=== PATIENT | male | born 1985 | race American Indian/Alaskan Native ===

== ENCOUNTER 2020-03-20 20:38 | Emergency (ER) | payer OTHER ==
[~2020-03-20] VITALS: Ht 182.9 cm; Wt 109.3 kg
[2020-03-20] MEDS ORDERED: ZYRTEC10 M3 PO (20:58)
--- NOTE | 2020-03-21 15:41 | EKG ---
[facility] [address] [facility] [place], [place] [address] Signed Sinus tachycardia Inferior infarct , age undetermined Abnormal ECG No previous ECGs available Confirmed by ELZA SARKAR MD ([id number]) on 03/21/2020 3:41:34 PM Electronically Signed By: ELZA SARKAR MD 03/21/20 1541 PATIENT NAME: LONNIE MAYNARD Electrocardiogram DATE OF : 85 PHYSICIAN: ELZA SARKAR MD REPORT #: [id number] REPORT IS CONFIDENTIAL AND NOT TO BE RELEASED WITHOUT AUTHORIZATION
== END 2020-03-20 23:35 | disposition home or self-care (01) ==
LOC: ED 20:38
DX: R00.0 Tachycardia, unspecified (principal); E86.0 Dehydration; K21.9 Gastro-esophageal reflux disease without esophagitis; J45.909 Unspecified asthma, uncomplicated; F41.9 Anxiety disorder, unspecified; F17.200 Nicotine dependence, unspecified, uncomplicated; Z79.899 Other long term (current) drug therapy
CPT/HCPCS: 71045; 80053; 81001; 83735; 84484; 85025; 85379; 93005; 93010; 96361; 96374; 96376; 99285-25; J2060; J7030

== ENCOUNTER 2020-04-01 17:11 | Emergency (ER) | payer OTHER ==
[~2020-04-01] VITALS: Ht 182.9 cm; Wt 109.3 kg
[~2020-04-01 17:11] MED LIST: ZYRTEC10 M3 PO
--- OUTSIDE RECORDS SUMMARY | 2020-04-01 17:14 | XMS ---
PreManage Notification: LONNIE MAYNARD Security Gifted Program Teacher Events No recent Security Events currently on file CRITERIA MET - [facility] - 2 Visits in 30 Days CARE PROVIDERS There are no care providers on record at this time. Marquis has no Care Guidelines for this patient. Bethany VISIT COUNT (12 MO.) 2 [facility] [place] TOTAL 2 NOTE: Visits indicate total known visits. ED/C VISIT TRACKING (12 MO.) 04/01/2020 17:[address] [facility] [place] TYPE: Emergency COMPLAINT: - SOB 03/20/2020 20:[address] [facility] [place] TYPE: Emergency COMPLAINT: - SOB DIAGNOSES: - Nicotine dependence, unspecified, uncomplicated - Unspecified asthma, uncomplicated - Tachycardia, unspecified - Other termite technician (current) drug therapy - Gastro-esophageal reflux disease without esophagitis - Dehydration - Shortness of breath - Anxiety disorder, unspecified INPATIENT VISIT TRACKING (12 MO.) No inpatient visits to display in this time frame [email or web address]
[2020-04-01] MEDS ORDERED: PRILOSEC OTC20 MG PO (20:35)
--- NOTE | 2020-04-02 11:00 | EKG ---
[facility] [address] [facility] [place] [address] Signed Normal sinus rhythm Normal ECG When compared with ECG of 20-MAR-2020 20:50, Vent. rate has decreased BY 52 BPM Nonspecific T wave abnormality no longer evident in Lateral leads Confirmed by ELZA SARKAR MD ([id number]) on 04/02/2020 11:00:36 AM Electronically Signed By: ELZA SARKAR MD 04/02/20 1100 PATIENT NAME: LONNIE MAYNARD ADRIAN Electrocardiogram DATE OF : 85 PHYSICIAN: ELZA SARKAR MD REPORT #: [id number] REPORT IS CONFIDENTIAL AND NOT TO BE RELEASED WITHOUT AUTHORIZATION
== END 2020-04-01 21:35 | disposition home or self-care (01) ==
LOC: ED 17:11
DX: R00.2 Palpitations (principal); J45.909 Unspecified asthma, uncomplicated; K21.9 Gastro-esophageal reflux disease without esophagitis; Z87.891 Personal history of nicotine dependence; Z79.899 Other long term (current) drug therapy
CPT/HCPCS: 93005; 93010; 93225; 93226; 93227; 99284-25

== ENCOUNTER 2021-04-16 05:50 | Day surgery (SDC) | payer OTHER ==
[~2021-04-16] VITALS: Ht 182.9 cm; Wt 96.8 kg
[~2021-04-16 05:50] MED LIST changes: +ATIVAN1 MG PO; +FLONASE ALLERG9.9 ML; +LEXAPRO10 MG PO; +PRILOSEC OTC20 MG PO
[2021-04-16] MEDS ORDERED: ZINC30 M1 PO (07:17)
[2021-04-16] MEDS ORDERED: B COMPLEX1 EACH PO (07:17)
--- NOTE | 2021-04-16 09:00 | NUR ---
04/16/21 0900 Kymberly Sandoval 0815 PT ARRIVED IN PACU SLEEPY WITH NO C/O'S. ABD SOFT AND PASSING FLATUS. 0830 SITTING UP IN BED TALKING WITH ALL QUESTIONS ANSWERED. 0843 DC INSTRUCTIONS GIVEN TO PT AT BEDSIDE AND MOTHER AT CAR. LEFT VIA W/C.
--- NOTE | 2021-04-16 14:58 | OR ---
[facility] [address] [place], [place] [address] Signed DATE OF OPERATION: 04/16/2021 SURGEON: Nadine Decker MD PREOPERATIVE DIAGNOSES: 1. Gastroesophageal reflux disease. 2. Nausea with intermittent shortness of breath. 3. Intermittent rectal bleeding. POSTOPERATIVE DIAGNOSES: 1. Mild diffuse gastritis. 2. Small hiatal hernia. 3. Gastroesophageal junction at 38 cm. 4. 7 mm polyp at 75 cm. 5. Distal 1/2 proctitis. PROCEDURES: 1. EGD with CLOtest and biopsies of the duodenum, pyloric bulb and antrum. 2. Colonoscopy with hot biopsy at 75 cm and multiple cold biopsies throughout the entire colon and rectum. ESTIMATED BLOOD LOSS: Minimal. INDICATIONS: Lonnie is a 35-year-old young man, asked to see me for upper and lower endoscopy. He said he was having acid reflux with nausea and even some shortness of breath. He went on omeprazole quite a bit better. He also said in the last three months he has been having blood associated with bowel movements. Sometimes he by itself. He gives no family history of colon cancer or polyps. No family history of inflammatory bowel disease. He said he was drinking up to five days a week since age of 14. He likes to drink bourbon. He said he is now down to about four drinks in the year. He said he quit smoking back in 2020. He said he is involved in CBD and THC for anxiety. He said he is single, but involved by sexual relationships. He said he has not been the receptive partner for many years. In the office, I gave him a pamphlet on upper and lower endoscopy. We looked at that together including the risk. He understands the risks including, but not limited to gas bloating, crampy abdominal pain, bleeding, perforation requiring surgery, and missed diagnosis. We also discussed the need for monitored anesthesia care given his medications, his body habitus and his daily use of marijuana. He had expressed understanding and wished to proceed. Electronically Signed By: NADINE DECKER MD 04/16/21 1458 PATIENT NAME: LONNIE MAYNARD OPERATIVE REPORT DATE OF : [birth year] REPORT #: [id number] PHYSICIAN: NADINE DECKER MD PCP: [facility] REPORT IS CONFIDENTIAL AND NOT TO BE RELEASED WITHOUT AUTHORIZATION [facility] [address] [place], [place] [address] Signed PROCEDURE NOTE: Lonnie was taken into our endoscopy suite and placed in a supine semi-recumbent position. A bite block was utilized for the case. He was given monitored anesthesia care with propofol and ketamine per our nurse health social work professor. The adult gastroscope was introduced and we could see he has fairly large tonsils just above the epiglottis. Otherwise, the vocal cords and arytenoids were unremarkable. The scope was passed down the esophagus out through the stomach and into the duodenum. The duodenum and pyloric channel were not overly concerning. We went and took biopsies from the duodenal and pyloric channel for pathologic review. His stomach showed some mild diffuse erythematous changes. I suspect that is getting better now that he is on his omeprazole. We took a biopsy of the antrum for CLOtest as well as pathologic review. Upon retroflexion of scope, we could easily see a small hiatal hernia. The scope was withdrawn up through the area of the GE junction, which was compliant without stricture. There was no gastric or esophageal varices. He has minimal disruption to his Z-line. There was no Loera's mucosa. The distal esophagus was unremarkable. The middle and upper esophagus were unremarkable. After this, the gas had been suctioned out and the gastroscope removed. We measured out Lonnie's GE junction at 38 cm. Lonnie tolerated his upper endoscopy quite well. Lonnie was then rotated into the left lateral decubitus position. A digital rectal exam was performed and this was unremarkable. He was maintained on monitored anesthesia care per our nurse health social work professor. The adult colonoscope was introduced and we immediately encountered inflammatory changes starting at the anus up to about the mid rectum around 10-12 cm. Above that it rapidly dissipated and the rest of the colon all the way to the cecum seemed to be unremarkable. His prep was moderate. He had several areas of thick particulate stool matter that could not suction out completely. He might consider a double bowel prep in the future. We saw at least 90% of the mucosa if not more. We could easily see the ileocecal valve. We went ahead and took a cold biopsy starting at the cecum all the way to the colon and his rectum for pathologic documentation. We did not turn the scope into the terminal ileum as it was covered in particulate stool matter and we could not quite get the scope to turn. Once in the rectum, we had retroflexed the scope and we saw no additional pathology above the anal canal. After this, the gas was suctioned out and the colonoscope removed. Lonnie tolerated this procedure quite well. RECOMMENDATIONS: Lonnie should consider a double bowel prep in the future. We are going to give him hydrocortisone 25 mg suppositories per rectum twice a day for two weeks with one refill. If that is not corrected, he may need other suppositories. I will see him back in the office in 1-2 weeks for followup. Electronically Signed By: NADINE DECKER MD 04/16/21 0141 PATIENT NAME: LONNIE MAYNARD OPERATIVE REPORT DATE OF : [birth year] REPORT #: [id number] PHYSICIAN: NADINE DECKER MD PCP: [facility] REPORT IS CONFIDENTIAL AND NOT TO BE RELEASED WITHOUT AUTHORIZATION [address] [address] Signed Nadine Decker MD ALB/MODL /[id number] cc: Nadine Decker MD [facility] Copies: NADINE DECKER MD ~ Electronically Signed By: NADINE DECEKR MD 04/16/21 1458 PATIENT NAME: LONNIE MAYNARD OPERATIVE REPORT DATE OF : [birth year] REPORT #: [id number] PHYSICIAN: NADINE DECKER MD PCP: [facility] REPORT IS CONFIDENTIAL AND NOT TO BE RELEASED WITHOUT AUTHORIZATION
--- NOTE | 2021-04-17 14:21 | PATH ---
[facility] [address] [facility] [place] [address] Signed SPECIMEN(S): A DUODENAL BIOPSY SPECIMEN(S): B DUODENAL BULB BIOPSY SPECIMEN(S): C ANTRUM/PYLORUS BIOPSY SPECIMEN(S): D CECUM COLON BIOPSY SPECIMEN(S): E ASCENDING/RIGHT COLON BIOPSY SPECIMEN(S): F TRANSVERSE COLON BIOPSY SPECIMEN(S): G DESCENDING/LEFT COLON BIOPSY SPECIMEN(S): H COLON POLYP AT 75 CM SPECIMEN(S): I SIGMOID COLON BIOPSY SPECIMEN(S): J RECTUM PROXIMAL COLON BIOPSY SPECIMEN(S): K RECTUM MID COLON BIOPSY SPECIMEN(S): L RECTUM COLON BIOPSY AT 4 CM SPECIMEN SOURCE: A. DUODENAL BIOPSY B. DUODENAL BULB BIOPSY C. ANTRUM/PYLORUS BIOPSY D. CECUM COLON BIOPSY E. ASCENDING/RIGHT COLON BIOPSY F. TRANSVERSE COLON BIOPSY G. DESCENDING/LEFT COLON BIOPSY H. COLON POLYP AT 75 CM I. SIGMOID COLON BIOPSY J. RECTUM PROXIMAL COLON BIOPSY K. RECTUM MID COLON BIOPSY L. RECTUM COLON BIOPSY AT 4 CM CLINICAL HISTORY: EGD and colonoscopy. Preop: Acid reflux, nausea, rectal bleeding, history of diarrhea. Postop EGD: Small hiatal hernia, mild gastritis. Postop colonoscopy: Proctitis, polyp at 75 cm. MICROSCOPIC DESCRIPTION: Histologic sections of all submitted blocks are examined by light microscopy. These findings, together with the gross examination, support the pathologic diagnosis. FINAL PATHOLOGIC DIAGNOSIS: A. Duodenum, biopsies: - Unremarkable duodenal mucosa, negative for active inflammation or significant villous blunting. B. Duodenal bulb, biopsy: PATIENT NAME: LONNIE MAYNARD PATHOLOGY DATE OF : 85 REPORT #: [id number] PHYSICIAN: KERMIT BONILLA PCP: [facility] REPORT IS CONFIDENTIAL AND NOT TO BE RELEASED WITHOUT AUTHORIZATION [facility] [address] [place], [place] [address] Signed - Chronic duodenitis with Anna's gland hyperplasia. - Negative for active inflammation or significant villous blunting. C. Antrum/pylorus, biopsies: - Benign gastric mucosa with vascular congestion, negative for active inflammation. - No Helicobacter pylori bacteria are detected by HE stain. D. Cecum, biopsy: - Minute fragment of benign colonic mucosa, negative for active colitis, granulomas or dysplasia. E. Ascending/right colon, biopsy: - Small tubular adenoma. - Negative for active colitis, granulomas or dysplasia. F. Transverse colon, biopsies: - Unremarkable colonic mucosa. - Negative for active colitis, granulomas or dysplasia. G. Descending/left colon, biopsies: - Unremarkable colonic mucosa. - Negative for active colitis, granulomas or dysplasia. H. Colon polyp at 75 cm, biopsies: - Fragments of hyperplastic polyp. I. Sigmoid colon, biopsy: - Unremarkable colonic mucosa. - Negative for active colitis, granulomas or dysplasia. J. Proximal rectum, biopsies: - Unremarkable colonic mucosa. - Negative for active colitis, granulomas or dysplasia. K. Mid rectum, biopsies: - Chronic active colitis. - Negative for granulomas or dysplasia. L. Rectum, biopsies: - Chronic active colitis. - Negative for granulomas or dysplasia. AMB:[facility]:C2NR GROSS DESCRIPTION: Twelve specimens are received in twelve containers, labeled "KB." A. The specimen, labeled "KB, #1," and designated on the requisition "duodenum," is received in formalin and consists of one hayes soft tissue fragment that measures 0.4 cm in greatest dimension. The specimen is entirely submitted in cassette (A1). B. The specimen, labeled "KB, #2," and designated on the requisition "duodenal PATIENT NAME: LONNIE MAYNARD PATHOLOGY DATE OF : [birth year] REPORT #: [id number] PHYSICIAN: KERMIT BONILLA PCP: [facility] REPORT IS CONFIDENTIAL AND NOT TO BE RELEASED WITHOUT AUTHORIZATION [facility] [address] [place], [place] [address] Signed bulb," is received in formalin and consists of one hayes soft tissue fragment that measures 0.3 cm in greatest dimension. The specimen is entirely submitted in cassette (B1). C. The specimen, labeled "KB, #3," and designated on the requisition "antrum/pylorus," is received in formalin and consists of one hayes soft tissue fragment that measures 0.4 cm in greatest dimension. The specimen is entirely submitted in cassette (C1). D. The specimen, labeled "KB, #4," and designated on the requisition "cecum colon," is received in formalin and consists of one hayes soft tissue fragment with vegetative matter that measures 0.2 cm in greatest dimension. The specimen is entirely submitted in cassette (D1). E. The specimen, labeled "KB, #5," and designated on the requisition "ascending/right colon," is received in formalin and consists of one hayes soft tissue fragment that measures 0.3 cm in greatest dimension. The specimen is entirely submitted in cassette (E1). F. The specimen, labeled "KB, #6," and designated on the requisition "transverse colon," is received in formalin and consists of one hayes soft tissue fragment that measures 0.3 cm in greatest dimension. The specimen is entirely submitted in cassette (F1). G. The specimen, labeled "KB, #7," and designated on the requisition "descending/left colon," is received in formalin and consists of one hayes soft tissue fragment that measures 0.3 cm in greatest dimension. The specimen is entirely submitted in cassette (G1). H. The specimen, labeled "KB, #8," and designated on the requisition "colon polyp at 75 cm," is received in formalin and consists of two hayes soft tissue fragments that measure 0.3 cm in greatest dimension. The specimen is entirely submitted in cassette (H1). I. The specimen, labeled "KB, #9," and designated on the requisition "sigmoid colon," is received in formalin and consists of one hayes soft tissue fragment that measures 0.3 cm in greatest dimension. The specimen is entirely submitted in cassette (I1). J. The specimen, labeled "KB, #10," and designated on the requisition "proximal rectum," is received in formalin and consists of one hayes soft tissue fragment that measures 0.3 cm in greatest dimension. The specimen is entirely submitted in cassette (J1). K. The specimen, labeled "KB, #11," and designated on the requisition "mid rectum," is received in formalin and consists of two hayes soft tissue fragments that measure 0.3 cm in greatest dimension. The specimen is entirely submitted in cassette (K1). PATIENT NAME: LONNIE MAYNARD PATHOLOGY DATE OF : [birth year] REPORT #: [id number] PHYSICIAN: KERMIT BONILLA PCP: [facility] REPORT IS CONFIDENTIAL AND NOT TO BE RELEASED WITHOUT AUTHORIZATION [facility] [address] [place], [place] [address] Signed L. The specimen, labeled "KB, #12," and designated on the requisition "rectum at 4 cm," is received in formalin and consists of one hayes soft tissue fragment that measures 0.3 cm in greatest dimension. The specimen is entirely submitted in cassette (L1). Specimen received with friable fragments. AT (under the direct supervision of a pathologist) The Gross Description was prepared using a voice recognition system. The report was reviewed for accuracy; however, sound-alike word errors, addition and/or deletions may occur. If there is any question about this report, please contact Client Services. PERFORMING LABORATORY: The technical component was performed by [facility], [address] [place] [id number] (Tank Tender: Liz Duggan MD; CLIA# [id number]). Professional interpretation was performed by [facility] [address] (Tank Tender: Clarence Quintero M.D.; CLIA#: [id number]). Diagnostician: Liz Duggan MD Pathologist Electronically Signed 04/17/2021 Copies: ~ PATIENT NAME: LONNIE MAYNARD PATHOLOGY DATE OF : [birth year] REPORT #: [id number] PHYSICIAN: KERMIT BONILLA [facility] REPORT IS CONFIDENTIAL AND NOT TO BE RELEASED WITHOUT AUTHORIZATION
== END 2021-04-16 08:43 | disposition home or self-care (01) ==
LOC: OPS 05:50 → DS 05:50 → OPS 07:30 → DS 07:30 → OPS 08:15 → DS 08:15 → OPS 08:43 → DS 04-30 06:45
PROVIDERS: ATTEND Colon & Rectal Surgery
PROC: 0DBE8ZZ Excision of Large Intestine, Via Natural or Artificial Opening Endoscopic (ICD-10-PCS; 2021-04-16)
PROC: 0DB98ZZ Excision of Duodenum, Via Natural or Artificial Opening Endoscopic (ICD-10-PCS; principal; 2021-04-16 07:30)
PROC: 0DB68ZZ Excision of Stomach, Via Natural or Artificial Opening Endoscopic (ICD-10-PCS; 2021-04-16 07:30)
DX: K21.9 Gastro-esophageal reflux disease without esophagitis (principal); K62.5 Hemorrhage of anus and rectum; K44.9 Diaphragmatic hernia without obstruction or gangrene; K29.70 Gastritis, unspecified, without bleeding; K62.89 Other specified diseases of anus and rectum; K29.80 Duodenitis without bleeding; D12.2 Benign neoplasm of ascending colon; K63.5 Polyp of colon; K52.9 Noninfective gastroenteritis and colitis, unspecified; R11.0 Nausea; R06.02 Shortness of breath; R53.83 Other fatigue; F43.29 Adjustment disorder with other symptoms; J30.2 Other seasonal allergic rhinitis; F41.0 Panic disorder [episodic paroxysmal anxiety]; Z87.891 Personal history of nicotine dependence; Z86.16 Personal history of COVID-19
CPT/HCPCS: 80053; 85025; J2001; J2704; J7121; U0003

== ENCOUNTER 2024-07-17 16:31 | Emergency (ER) | payer OTHER ==
[~2024-07-17] VITALS: Ht 182.9 cm; Wt 103.0 kg
[~2024-07-17 16:31] MED LIST changes: +B COMPLEX1 EACH PO; +ZINC30 M1 PO
[2024-07-17 16:56] LABS: BASOPHILS 0.5 % (0-2); EOSINOPHILS 0.5 % (0-6); HEMATOCRIT 46.5 % (35.0-50.0); HEMOGLOBIN 15.9 g/dL (12.0-18.0); LYMPHOCYTES 25.6 % (24-44); MCH 30.2 (27-36); MCHC 34.2 g/dl (30-36); MCV 88.1 fl (81-99); MONOCYTES 5.5 % (0-12); NEUTROPHILS 67.9 % (39-80); PLATELET COUNT 233 K/uL (140-440); RBC 5.28 M/ul (4.3-5.7); RDW 13.8 (10.5-15.0)
[2024-07-17] MEDS ORDERED: KETOROLAC TROMETHAMINE 30 MG/ML VIAL IV ONE (17:00)
[2024-07-17] MEDS ORDERED: NITROGLYCERIN 0.4 MG SUBL SL PRN (17:00)
[2024-07-17] MEDS ORDERED: ASPIRIN 81 MG CHEW PO ONE (17:00)
[2024-07-17 17:06] LABS: INR 0.84 (0.80-1.30); PROTIME 11.1 Sec (11.2-14.2)
[2024-07-17 17:08] LABS: PARTIAL THROMBOPLASTIN TIME 31.8 Sec (22.9-41.3)
[2024-07-17 17:21] LABS: ALBUMIN 4.1 g/dL (3.4-5.0); ALBUMIN/GLOBULIN RATIO 1.05 (1.1-2.4); ANION GAP 13.8 (7-21); BILIRUBIN, TOTAL 0.3 ng/dL (0.2-1.0); BUN/CREATININE RATIO 17.58 (6.0-28.6); CALCIUM 8.8 mg/dL (8.5-10.1); CREATININE, SERUM 0.91 mg/dL (0.70-1.30); MAGNESIUM 2.3 mg/dL (1.8-2.4); POTASSIUM 3.8 mmol/L (3.5-5.1)
[2024-07-17 18:31] VITALS: BP 145/96
--- NOTE | 2024-07-17 22:05 | EKG ---
[facility] [address] [facility] [place] [address] Signed Normal sinus rhythm Normal ECG When compared with ECG of 01-APR-2020 20:51, No significant change was found Confirmed by Beth Be MD () on 07/17/2024 10:05:07 PM Electronically Signed By: BETH BE MD 07/17/24 2205 PATIENT NAME: LONNIE MAYNARD Electrocardiogram DATE OF : 85 PHYSICIAN: BETH BE MD REPORT #: [id number] REPORT IS CONFIDENTIAL AND NOT TO BE RELEASED WITHOUT AUTHORIZATION
== END 2024-07-17 18:28 | disposition home or self-care (01) ==
LOC: ED 16:31
PROVIDERS: Emergency Medicine
DX: R07.89 Other chest pain (principal); J45.909 Unspecified asthma, uncomplicated; K21.9 Gastro-esophageal reflux disease without esophagitis; Z87.891 Personal history of nicotine dependence; Z79.899 Other long term (current) drug therapy
CPT/HCPCS: 36415; 71045; 80053; 83735; 83880; 84484; 85025; 85379; 85610; 85730; 93005; 93010; 96374; 99285-25; A9270; J1885

== ENCOUNTER 2025-07-30 05:55 | Day surgery (SDC) | payer OTHER ==
[~2025-07-30] VITALS: Ht 182.9 cm; Wt 105.5 kg
[~2025-07-30 05:55] MED LIST changes: +MIDAZOLAM HCL 5 MG/5 ML VIAL IV PRN; +fentaNYL citrate 100 MCG/2 ML VIAL IV PRN
[2025-07-30 06:27] VITALS: BP 133/81
[2025-07-30] MEDS ORDERED: TRAZODONE HCL50 MG PO (06:30)
--- NOTE | 2025-07-30 06:41 | NUR ---
BETZY WAITING WITH PTChiquita
[2025-07-30] MEDS ORDERED: LACTATED RINGER'S 1,000 ML IV SCH (07:00)
[2025-07-30] MEDS ORDERED: fentaNYL citrate 100 MCG/2 ML VIAL ONE (07:00)
[2025-07-30] MEDS ORDERED: IBLOOD GLUCOSE TEST STRIP 1 EA TEST VI PRN (07:00)
[2025-07-30] MEDS ORDERED: LIDOCAINE HCL 1% 5 ML SDV INJ ONE (07:00)
[2025-07-30] MEDS ORDERED: MIDAZOLAM HCL 5 MG/5 ML VIAL ONE (07:00)
--- NOTE | 2025-07-30 08:19 | NUR ---
07/30/25 0819 Karla Serra 0811: PT ARRIVES TO PACU, DROWSY BUT AWAKE. HE IS CONNECTED TO MONITORS. REPORT RECEIVED FROM OR RNS. AYAZ 0818: DR. CARROLL IS AT THE BEDSIDE TO TALK WITH PT. PT DOES WAKE UP TO STIMULI AND SPEAKS WITH GLEN. HE DOES FALL BACK ASLEEP WITHOUT STIMULATION.
[2025-07-30 08:57] VITALS: BP 131/74
--- NOTE | 2025-07-30 14:19 | OR ---
[facility] [address] [place], [place] [address] Signed DATE OF OPERATION: 07/30/2025 SURGEON: Dano Carroll MD PREOPERATIVE DIAGNOSIS: History of polyps and low-grade colitis 2020 (Dr. Clayton Decker). POSTOPERATIVE DIAGNOSES: 1. Rectal polyp. 2. No evidence of colitis or proctitis. PROCEDURES: Total colonoscopy to cecum with cold snare polypectomy x1. ANESTHESIA: Intravenous sedation fentanyl 150 mcg, Versed 8 mg. INDICATION: This 39-year-old man is a patient of Dr. Ramirez and underwent colonoscopy by me in [address] Clayton Decker, where he was found to have at least one polyp. There were no current complaints of diarrhea. However, pathology report did describe chronic colitis. He takes no medication for treatment of colitis currently. He has no family history of colitis or colon cancer. He is admitted to undergo surveillance colonoscopy, understand the risk of bleeding, infection, and perforation. FINDINGS: The prep was excellent throughout. Visualization behind the ileocecal valve proper was not forthcoming despite every effort to do so. Mucosal elevation with biopsy forceps did show no sign of cecal problem in any other way. There was a small sessile polyp of the rectum, which was excised. There was no sign of proctitis or sign of colitis elsewhere. I saw no diverticula. DESCRIPTION OF PROCEDURE: The patient was brought to the endoscopy suite and placed in lateral decubitus position, given intravenous sedation to the point of slurred speech and nystagmus. Digital rectal examination was normal. Full cardiopulmonary monitoring was maintained. An Olympus video colonoscope was passed in the rectum and manipulated throughout the colon ultimately intubating the right colon and proximal cecal area. Various manipulations were undertaken to allow for complete intubation of the cecum which was Electronically Signed By: DANO CARROLL MD 07/30/25 1419 PATIENT NAME: LONNIE MAYNARD OPERATIVE REPORT DATE OF : [birth year] REPORT #: [id number] PHYSICIAN: DANO CARROLL MD PCP: RICCARDO RAMIREZ MD REPORT IS CONFIDENTIAL AND NOT TO BE RELEASED WITHOUT AUTHORIZATION [facility] [address] [place], [place] [address] Signed not forthcoming. A biopsy forceps was used to elevate the mucosa in the cecum with reasonable visualization on that basis. The scope was then withdrawn. Examination throughout showed no sign of abnormality specifically no colitis or diverticula. Retroflexed view of the rectum did demonstrate a small sessile polyp about 5 mm in size, which was excised with cold snare technique. Complete excision was accomplished. Specimen was passed for Pathology. Scope was removed. The patient was taken to recovery room in good condition. CONCLUDING DIAGNOSIS: Small polyp of rectum, otherwise normal. PLAN: Recommend repeat colonoscopy in 7 to 10 years, sooner if symptoms should develop. He will return to the ongoing care of Dr. Ramirez. MD ASAD Neff/BRYANL /[id number] cc: Dr. Ramirez Copies: ~ Electronically Signed By: DANO CARROLL MD 07/30/25 1419 PATIENT NAME: LONNIE MAYNARD ADRIAN OPERATIVE REPORT DATE OF : [birth year] REPORT #: [id number] PHYSICIAN: DANO CARROLL MD PCP: RICCARDO RAMIREZ MD REPORT IS CONFIDENTIAL AND NOT TO BE RELEASED WITHOUT AUTHORIZATION
== END 2025-07-30 09:03 | disposition home or self-care (01) ==
LOC: DS 05:55 → OPS 05:55
PROVIDERS: ATTEND Surgery
PROC: 0DBP8ZX Excision of Rectum, Via Natural or Artificial Opening Endoscopic, Diagnostic (ICD-10-PCS; principal; 2025-07-30 07:30)
DX: Z12.11 Encounter for screening for malignant neoplasm of colon (principal); K62.1 Rectal polyp; K62.89 Other specified diseases of anus and rectum; I10 Essential (primary) hypertension; J45.909 Unspecified asthma, uncomplicated; Z79.51 Long term (current) use of inhaled steroids; Z79.899 Other long term (current) drug therapy; Z86.0100 Personal history of colon polyps, unspecified; Z87.19 Personal history of other diseases of the digestive system
CPT/HCPCS: 88305; 99153; G0500; J2250; J3010; J7121